=== PATIENT | male | born 1990 | race Caucasian/White ===

== ENCOUNTER 2021-03-06 14:05 | Emergency (ER) | payer BC, SELFPAY ==
--- NOTE | 2021-03-06 14:20 | XR_ITS ---
PROCEDURE: XR CHEST PORTABLE CLINICAL HISTORY: cough, chest congestion COMPARISON: No exams were available for comparison FINDINGS: The cardiomediastinal silhouette and pulmonary vascularity are within normal limits. Ground-glass opacity is present in the right lower lobe laterally and in the left midlung laterally some of which could be due to overlying soft tissue attenuation left. No acute bony abnormalities. IMPRESSION: Bilateral pneumonia Dictated by: Paulo Yoon MD 03/06/2021 14:41 Paulo Yoon MD in [place] 03/06/2021 14:41
[2021-03-06 14:21] VITALS: BP 122/71; PULSE 94; RESP 18; TEMP 36.9; O2SAT 99; BMI 25.0
--- NOTE | 2021-03-06 14:32 | HMH.EDUTC ---
[facility] [place] Clinical Impression: Bilateral pneumonia Qualifiers: Pneumonia type: due to unspecified organism Lung location: unspecified part of lung Qualified Code(s): J18.9 - Pneumonia, unspecified organism Disposition: Home, Self-Care Condition on Discharge: Good Instructions: Pneumonia-Adult, Guaifenesin, Amoxicillin and Clavulanic Acid Additional Instructions: ? Continue Azithromycin and Start Augmentin today. Be sure to complete entire prescription even if feeling better ? Monitor temp. Tylenol every 4 hours as needed and / or ibuprofen every 6 hours as needed ( As long as your primary care physician has told you that it ok to take both. For fever/aches/pains ER if no less than 101 despite Tylenol or Motrin ? Humidifier/vaporizer or hot steamy shower ? Inhaler every 4-6 hours as needed like we discussed. If unsure how to use it, ask pharmacist to demonstrate how. Should help open airways and improve cough, wheezing, and shortness of breath ? Mucinex for your cough. Be sure to drink lots of water. I Return immediately to the ER if any worsening of shortness of Breath, chest pain, bluish tint to lips or any life threatening symptoms *Continue taking steroid . Helps with inflammation therefore, cough and wheezing. Follow directions on the package. Reviewed side effects. Patient reports taking them before. Follow up IMMEDIATELY for new or worsening of symptoms OR no noticeable improvement over the next 48-72 hours. 911 immediately for any life threatening symptoms such as chest pain or difficulty breathing Prescriptions: Albuterol Sulfate [Proventil-HFA 90mcg/puff Inh] 1 - 2 puffs IH Q6HP PRN #1 each PRN Reason: Shortness Of Breath Transmission Status: Received by [facility] guaiFENesin [Mucinex 600mg tablet] 1 - 2 tab PO Q12HP PRN #20 tab PRN Reason: Congestion Transmission Status: Received by [facility] Amoxicillin/Potassium Clav [Augmentin 875-125 Tablet] 1 tab PO Q12H #20 tab Transmission Status: Re[facility] Referrals: Margret Ayala [Referring] - As needed Forms: Work/School Release Time of Disposition: 15:22 Medical Decision Making - Trae Inquiry Pt receiving controlled substance: No Trae was queried for this patient: No Vital Signs: 03/06/21 14:21 03/06/21 15:26 Temperature 98.4 F 98.4 F Temperature Source Oral Pulse Rate 82 Pulse Rate [Left] 94 H Respiratory Rate 18 18 Blood Pressure 124/82 Blood Pressure [Right Arm] 122/71 Blood Pressure Mean [Right Arm] 88 02 Sat by Pulse Oximetry 99 - Radiology Data #1 Image(s): Chest Image Reviewed: Yes I have reviewed radiologist's interpretation Bilateral pneumonia Medical Decision Narrative: Medication discussed with [facility] Patient was started on Azithromycin and Medrol yesterday by his PCP recommended adding Augmentin Discussed with patient and he advised again that he is not having any SOA at this time States that SOA typically occurs after coughing episode and at times he is able to cough up mucous Discussed with patient about transfer to the ED and patient declined states that he wanted to try the medication and would return if symptoms worsen [facility] [place] HPI - General Stated complaint: covid postive, symtpoms becoming worse Time Seen by Provider: 03/06/21 14:32 Mode of Arrival: Ambulatory Source of Information: Patient Limitations: No Limitations Description of Symptoms (Recalled from Triage Doc. by RN): PT IS COVID POSITIVE. PT C/O FEVER, A PRODUCTIVE COUGH WITH GREEN SPUTUM, CHILLS, DIARRHEA, SOA, AND BODY ACHES. HEENT Symptoms (Recalled from RN notes): Yes (CONGESTION) Resp Symptoms (Recalled from RN notes): Yes (SOA AND PRODUCTIVE COUGH WITH GREEN SPUTUM) Skin Symptoms (Recalled from RN notes): No MS Symptoms (Recalled from RN notes): No Functional Status (Recalled from RN notes): BODY ACHES AND CHILLS - History of Present Illness Provider Complaint: Patient states he test
[2021-03-06 15:26] VITALS: BP 124/82; PULSE 82; RESP 18; TEMP 36.9
== END 2021-03-06 15:31 | disposition home or self-care (01) ==
PROVIDERS: Emergency Provider Nurse Practitioner; PCP Radiology Diagnostic Radiology
DX: U07.1 COVID-19 (principal); J12.82 Pneumonia due to coronavirus disease 2019
CPT/HCPCS: 71045; 99202; G0463